=== PATIENT | male | born 1985 | race American Indian/Alaskan Native ===

== ENCOUNTER 2016-11-23 23:05 | Emergency (ER) | payer SELFPAY ==
[2016-11-23 23:05] VITALS: BMI 20.1
[2016-11-23 23:15] VITALS: BP 136/95; PULSE 99; RESP 18; TEMP 101.7; O2SAT 100
[2016-11-24] MEDS ORDERED: Penicillin G Benzathine 1.2 Mill Unit/2 ml Syr IM ONE ×2 (00:13→00:18)
--- NOTE | 2016-11-24 00:36 | C.PDOC ---
History Of Present Illness Patient is a 31 year old male who presents to the ER with a complaint of bilateral ear pain, sore throat and a subjective fever. Denies headache, neck pain, cough, SOB or chest pain. Time Seen by Provider: 11/23/16 23:19 Chief Complaint (Nursing): ENT Problem History Per: Patient History/Exam Limitations: None Onset/Duration Of Symptoms: Days Current Symptoms Are (Timing): Still Present Quality (Ear): denies: Discharge Quality (Mouth/Throat): Tenderness Symptoms Have Been: Continuous Anticoagulant/Antiplatlet Use?: Unknown Recent Aspirin Use: Unknown Past Medical History Reviewed: Historical Data, Nursing Documentation, Vital Signs Vital Signs: Last Vital Signs Temp 101.7 F H 11/23/16 23:13 Pulse 99 H 11/23/16 23:13 Resp 18 11/23/16 23:13 BP 136/95 H 11/23/16 23:13 Pulse Ox 100 11/24/16 04:09 - Medical History PMH: No Chronic Diseases Surgical History: No Surg Hx Family History: States: Unknown Family Hx - Social History Hx Tobacco Use: Yes Hx Alcohol Use: No Hx Substance Use: No - Immunization History Hx Tetanus Toxoid Vaccination: No Hx Influenza Vaccination: No Hx Pneumococcal Vaccination: No Review Of Systems Constitutional: Positive for: Fever (Subjective) ENT: Positive for: Ear Pain, Throat Pain Cardiovascular: Negative for: Chest Pain Respiratory: Negative for: Cough, Shortness of Breath Physical Exam - Physical Exam Appears: Non-toxic Skin: Normal Color, Warm, Dry Head: Atraumatic, Normacephalic Ear(s): Bilateral: Normal Oral Mucosa: Moist Throat: Exudate (Tonsillar), Other (Enlarged tonsils) Neck: Normal, Supple Chest: Symmetrical, No Tenderness Cardiovascular: Rhythm Regular, No Murmur Respiratory: Normal Breath Sounds, No Rales, No Rhonchi, No Wheezing Gastrointestinal/Abdominal: Soft, No Tenderness Neurological/Psych: Oriented x3, Normal Speech, Normal Cognition ED Course And Treatment O2 Sat by Pulse Oximetry: 100 (Room air) Pulse Ox Interpretation: Normal Progress Note: Motrin and penicillin ordered. Pt will follow up with PMD in clinic and understand to return to ER if worse Reassessment Condition: Improved Disposition Counseled Patient/Family Regarding: Diagnosis, Need For Followup, Rx Given - Disposition Referrals: [facility] [Outside] [facility] [employer] [facility] [Outside] Disposition: HOME/ ROUTINE Disposition Time: 00:33 Condition: STABLE Additional Instructions: Please drink fluids Take motrin or advil for pain Gargle with warm salt water Follow up with PMD Return to ER if worse Prescriptions: Ibuprofen [Motrin] 600 mg PO Q6H #20 tab Instructions: Tonsillitis (ED) - Clinical Impression Clinical Impression: Exudative tonsillitis - Scribe Statement The provider has reviewed the documentation as recorded by the Scribprabha Giles All medical record entries made by the Carly were at my direction and personally dictated by me. I have reviewed the chart and agree that the record accurately reflects my personal performance of the history, physical exam, medical decision making, and the department course for this patient. I have also personally directed, reviewed, and agree with the discharge instructions and disposition.
== END 2016-11-24 00:40 | disposition home or self-care (01) ==
LOC: SUPCPDRO 23:05 → C.ER 23:05
DX: J03.90 Acute tonsillitis, unspecified (principal); Z72.0 Tobacco use
CPT/HCPCS: 96372; 99282; J0561

== ENCOUNTER 2017-11-06 16:31 | Emergency (ER) | payer MEDICAID ==
[2017-11-06 16:31] VITALS: BMI 20.1
[2017-11-06 16:50] VITALS: BP 128/83; PULSE 80; RESP 16; TEMP 98.3; O2SAT 98
--- NOTE | 2017-11-06 17:12 | C.PDOC ---
Time Seen by Provider: 11/06/17 16:51 Chief Complaint (Nursing): Cough, Cold, Congestion History Per: Patient Onset/Duration Of Symptoms: Days (3) Current Symptoms Are (Timing): Still Present Associated Symptoms: Sore Throat (resolved), Cough, Myalgias, Nasal Congestion Severity: Moderate Additional History Per: Prior Records Past Medical History Reviewed: Historical Data, Nursing Documentation, Vital Signs Vital Signs: Last Vital Signs Temp 98.3 F 11/06/17 16:48 Pulse 80 11/06/17 16:48 Resp 16 11/06/17 16:48 BP 128/83 11/06/17 16:48 Pulse Ox 98 11/06/17 16:48 - Medical History PMH: No Chronic Diseases Surgical History: No Surg Hx Family History: States: Unknown Family Hx - Social History Hx Tobacco Use: No (Quit 6 months ago) Hx Alcohol Use: No Hx Substance Use: No - Immunization History Hx Tetanus Toxoid Vaccination: No Hx Influenza Vaccination: No Hx Pneumococcal Vaccination: No Review Of Systems Except As Marked, All Systems Reviewed And Found Negative. Constitutional: Positive for: Malaise ENT: Positive for: Nose Congestion. Negative for: Ear Pain Respiratory: Positive for: Cough. Negative for: Shortness of Breath, Hemoptysis Gastrointestinal: Negative for: Vomiting, Abdominal Pain, Diarrhea Genitourinary: Negative for: Dysuria Musculoskeletal: Negative for: Neck Pain, Back Pain, Leg Pain Skin: Negative for: Rash Neurological: Negative for: Weakness, Numbness Physical Exam - Physical Exam Appears: Non-toxic, No Acute Distress Skin: Normal Color, Warm, Dry, No Rash Head: Atraumatic, Normacephalic Eye(s): bilateral: Normal Inspection, PERRL, EOMI Neck: Normal ROM, Supple Lymphatic: No Adenopathy Cardiovascular: Rhythm Regular Respiratory: Normal Breath Sounds, No Accessory Muscle Use Gastrointestinal/Abdominal: Soft, No Tenderness Back: No CVA Tenderness Extremity: Normal ROM, No Pedal Edema, No Calf Tenderness Neurological/Psych: Oriented x3, Normal Speech, Normal Motor, Normal Sensation ED Course And Treatment O2 Sat by Pulse Oximetry: 98 Pulse Ox Interpretation: Normal Disposition Counseled Patient/Family Regarding: Diagnosis, Need For Followup, Rx Given - Disposition Referrals: [facility] [Outside] Disposition: HOME/ ROUTINE Disposition Time: 17:11 Condition: STABLE Additional Instructions: Follow up with your doctor or in the clinic. Return to the ER if you develop high fever, shortness of breath, worsening of symptoms or if you have any other concerns. Prescriptions: Benzonatate 200 mg PO TID PRN #15 capsule PRN Reason: Cough Naproxen [Naprosyn] 1 tab PO BID PRN #20 tab PRN Reason: Pain Oxymetazoline 0.05% [Oxymetazoline HCl 30 Ml] 2 sprays NS BID #1 bottle Instructions: Cough, Runny Nose, and the Common Cold (DC) - Clinical Impression Clinical Impression: Upper respiratory infection
== END 2017-11-06 17:19 | disposition home or self-care (01) ==
LOC: C.ER 16:31
DX: J06.9 Acute upper respiratory infection, unspecified (principal)

== ENCOUNTER 2018-04-04 10:31 | Emergency (ER) | payer MEDICAID ==
[2018-04-04 10:37] VITALS: BMI 23.7
[2018-04-04 10:41] VITALS: BP 123/86; PULSE 90; RESP 18; TEMP 98.3; O2SAT 98
[2018-04-04] MEDS ORDERED: Tetanus/Diphtheria Toxoids 0.5 ml Syringe IM ONE ×2 (11:38→11:44)
[2018-04-04] MEDS ORDERED: Bacitracin 500 Units/gm Oint Foilpak UD TOP ONE (11:39)
--- NOTE | 2018-04-04 11:41 | C.PDOC ---
History Of Present Illness 32 y/o male comes in for evaluation of a laceration to the right lower leg, sustained yesterday while at work around 2pm. States he cut it on a broken mixer. Patient covered the wound yesterday without cleaning it. Today at work he was sent to the ED for evaluation. Patient denies any sensory changes, fever, or wound discharge. He is unsure of tetanus vaccination status. Time Seen by Provider: 04/04/18 11:00 Chief Complaint (Nursing): Abnormal Skin Integrity History Per: Patient History/Exam Limitations: no limitations Onset/Duration Of Symptoms: Days (x1) Current Symptoms Are (Timing): Still Present Quality Of Symptoms: Painful, Swollen Past Medical History Reviewed: Historical Data, Nursing Documentation, Vital Signs Vital Signs: Last Vital Signs Temp 98.3 F 04/04/18 10:38 Pulse 90 04/04/18 10:38 Resp 18 04/04/18 10:38 BP 123/86 04/04/18 10:38 Pulse Ox 98 04/04/18 10:38 - Medical History PMH: GERD Surgical History: No Surg Hx Family History: States: Unknown Family Hx - Social History Hx Tobacco Use: No (Quit 6 months ago) Hx Alcohol Use: No Hx Substance Use: No - Immunization History Hx Tetanus Toxoid Vaccination: No Hx Influenza Vaccination: No Hx Pneumococcal Vaccination: No Review Of Systems Constitutional: Negative for: Fever Skin: Positive for: Lesions (to right lower leg) Neurological: Negative for: Weakness, Numbness Physical Exam - Physical Exam Appears: Non-toxic, No Acute Distress Skin: Normal Color, Warm Head: Atraumatic, Normacephalic Eye(s): bilateral: Normal Inspection Chest: Symmetrical Respiratory: No Accessory Muscle Use, Other (speaking in full sentences) Extremity: Normal ROM (of the right knee and ankle), Capillary Refill (less than 2 sec), No Deformity, Other (lateral aspect of right lower leg with 3.5 cm laceration, in horizontal orientation, which is mildly TTP and swollen; no erythema, fluctuance, or induration; Sensation intact) Pulses: Left Dorsalis Pedis: Normal, Right Dorsalis Pedis: Normal Neurological/Psych: Oriented x3, Normal Speech Gait: Steady ED Course And Treatment O2 Sat by Pulse Oximetry: 98 (RA) Pulse Ox Interpretation: Normal Progress Note: Tetanus booster given. Tylenol administered for pain. Bacitracin and sterile dressing applied. Patient will be discharged home on Keflex, given initial dose in the ED. Instructed patient on wound care and follow up instructions. Disposition Counseled Patient/Family Regarding: Diagnosis, Need For Followup, Rx Given - Disposition Referrals: [facility] [Outside] Disposition: HOME/ ROUTINE Disposition Time: 12:00 Condition: STABLE Additional Instructions: FOLLOW UP WITH YOUR DOCTOR/CLINIC IN 1-2 DAYS USE ANTIBIOTICS UNTIL FINISHED RETURN TO ER IF AREA BECOMES MORE PAINFUK, SWOLLEN, RED, YOU HAVE FEVER OR DISCHARGE, ETC Prescriptions: Cephalexin [Keflex] 500 mg PO BID #14 capsule Ibuprofen [Motrin Tab] 600 mg PO Q6 PRN #30 tab PRN Reason: fever/pain Forms: General Discharge Instructions, [facility] (Turkish), Work Excuse Print Language: GAMBIAN - Clinical Impression Clinical Impression: Laceration of right lower leg - Scribe Statement The provider has reviewed the documentation as recorded by the Scribe (Becky cervantes) Provider Attestation: All medical record entries made by the Scribe were at my direction and personally dictated by me. I have reviewed the chart and agree that the record accurately reflects my personal performance of the history, physical exam, medical decision making, and the department course for this patient. I have also personally directed, reviewed, and agree with the discharge instructions and disposition.
[2018-04-04] MEDS ORDERED: Bacitracin 500 Units/gm Oint Foilpak UD ONE (11:44)
== END 2018-04-04 11:50 | disposition home or self-care (01) ==
LOC: C.ER 10:31
DX: S81.811A Laceration without foreign body, right lower leg, initial encounter (principal); W45.8XXA Other foreign body or object entering through skin, initial encounter; Y92.89 Other specified places as the place of occurrence of the external cause; Y99.0 Civilian activity done for income or pay

== ENCOUNTER 2018-10-12 09:13 | Emergency (ER) | payer MEDICAID ==
[2018-10-12 09:13] VITALS: BMI 23.7
[2018-10-12 09:44] VITALS: BP 120/78; PULSE 84; RESP 16; TEMP 98.8; O2SAT 98
--- NOTE | 2018-10-12 09:59 | C.PDOC ---
History Of Present Illness 33 yr old male w/ hx of GERD p/w sore throat. Pt notes sore throat x4d. Notes some pain on swallowing but no odynophagia, dysphagia or change in phonation. No fall or trauma or neck. No massess or swelling in neck. No headache or chest pain. No current nausea or vomiting. No abdominal pain or complaints. He notes taking aleve yesterday with improvement in his sore throat. He notes being to drink and eat food without issue. He notes chronic nausea, intermittent for 3 years previously diagnosed as GERD and denies any recent or current nausea. No fever, chills or night sweats. No other complaints PMD: Dr. Herrera Time Seen by Provider: 10/12/18 09:19 Chief Complaint (Nursing): ENT Problem Past Medical History Vital Signs: Last Vital Signs Temp 98.8 F 10/12/18 09:42 Pulse 84 10/12/18 09:42 Resp 16 10/12/18 09:42 BP 120/78 10/12/18 09:42 Pulse Ox 98 10/12/18 09:42 Primary Care Provider: FAMILY PROVIDER,NO - Medical History PMH: GERD Family History: States: Unknown Family Hx - Social History Hx Tobacco Use: No (Quit 6 months ago) Hx Alcohol Use: No Hx Substance Use: No - Immunization History Hx Tetanus Toxoid Vaccination: No Hx Influenza Vaccination: No Hx Pneumococcal Vaccination: No Review Of Systems Constitutional: Negative for: Fever, Chills, Sweats, Weakness, Malaise Eyes: Negative for: Pain, Vision Change ENT: Positive for: Throat Pain. Negative for: Ear Pain, Ear Discharge, Nose Pain, Nose Discharge, Nose Congestion, Mouth Pain, Mouth Swelling, Throat Swelling Cardiovascular: Negative for: Chest Pain, Palpitations Respiratory: Negative for: Cough, Shortness of Breath Gastrointestinal: Negative for: Nausea, Vomiting, Abdominal Pain, Diarrhea, Constipation, Melena Genitourinary: Negative for: Dysuria, Frequency Musculoskeletal: Negative for: Neck Pain, Shoulder Pain, Arm Pain, Back Pain, Hand Pain, Leg Pain Skin: Negative for: Rash, Lesions Neurological: Negative for: Weakness, Numbness, Confusion, Altered Mental Status, Headache Psych: Negative for: Anxiety Physical Exam - Physical Exam Appears: Well, Non-toxic, No Acute Distress Skin: Normal Color, Warm, Dry Head: Atraumatic, Normacephalic Eye(s): bilateral: Normal Inspection, PERRL, EOMI Ear(s): Bilateral: Normal Nose: Normal Oral Mucosa: Moist Tongue: Normal Appearing Lips: Normal Appearing Teeth: Normal Dentition Gingiva: Normal Appearing, No Swelling, No Tender Throat: Normal, No Erythema, No Exudate, No Drooling, No Mass Neck: Normal, Normal ROM, No Midline Cervical Tenderness, No Paracervical Tenderness, Supple, Other (no meningeal signs) Chest: Symmetrical Cardiovascular: Rhythm Regular, No Murmur, No JVD Respiratory: Normal Breath Sounds Gastrointestinal/Abdominal: Normal Exam, Soft, No Tenderness, No Mass, No Distention, No Guarding Back: Normal Inspection, No CVA Tenderness, No Vertebral Tenderness Extremity: Normal ROM, No Tenderness Extremity: Bilateral: Atraumatic, No Pedal Edema, Normal Color And Temperature Neurological/Psych: Oriented x3, Normal Speech, Normal Cognition Gait: Steady ED Course And Treatment O2 Sat by Pulse Oximetry: 98 Medical Decision Making Medical Decision Makin yr old male w/ hx of GERD p/w sore throat. No throat swelling or posterior / anterior cervical chain lymphadenopathy noted. TM and oropharyngeal exam unremarkable. uvula midline without redness. No change in phonation / hot potatoe voice noted. No dysphagia / odynophagia. Likely viral URI Pending labs 1100 serology unremarkable pt notes pain improved tolerating solids and fluids well per pt, without current nausea clear for d/c home with return indications and f/u. pt agreeable to plan. Disposition - Disposition Referrals: Stanislav Chun MD [Staff Provider] - [facility] [Outside] [facility] [Outside] [facility] [Outside] Reddy Hinkle MD [Staff Provider] - Disposition Time: 10:57 Condition: STABLE Additional Instructions: LEVON LI, thank you for letting us take care of you today. Your provider was Humberto Rice and you were treated for SORE THROAT. The emergency medical care you received today was directed at your acute symptoms. If you were prescribed any medication, please fill it and take as directed. It may take several days for your symptoms to resolve. Return to the Emergency Department if your symptoms worsen, do not improve, or if you have any other problems. Please contact your doctor or call one of the physicians/clinics you have been referred to that are listed on the Patient Visit Information form that is included in your discharge packet. Bring any paperwork you were given at discharge with you along with any medications you are taking to your follow up visit. Our treatment cannot replace ongoing medical care by a primary care provider outside of the emergency department. Thank you for allowing the [email or web address] team to be part of your care today. If you had an X-Ray or CT scan: A Radiologist will review the ED reading if any change in treatment is needed we will contact you. If you had a blood, urine, or wound culture: It will take several days for the results, if any change in treatment is needed we will contact you. If you had an STI test: It will take 48 hours for the results. Please call after 1 week if you have not heard back. Instructions: Sore Throat, Adult (DC), Viral Upper Respiratory Infection, Adult (DC) Forms: [employer] (Macanese) - Clinical Impression Clinical Impression: Upper respiratory infection, Sore throat
== END 2018-10-12 11:05 | disposition home or self-care (01) ==
LOC: C.ER 09:13
DX: J02.9 Acute pharyngitis, unspecified (principal)

== ENCOUNTER 2018-10-14 22:46 | Emergency (ER) | payer MEDICAID ==
[2018-10-14 22:46] VITALS: BMI 23.7
--- NOTE | 2018-10-15 00:10 | C.PDOC ---
History Of Present Illness 33 year old male presents to the ED c/o sore throat and painful swallowing for the past 4 days. Patient was seen in the ED on 10/12/18 for same presentation. At that time patient had negative strep test and throat culture. Patient still reports pain. Patient denies fever, chills, headache, rash, SOB, wheezing, neck pain, recent travel, sick contacts. Pt has not taken anything OTC Time Seen by Provider: 10/14/18 23:26 Chief Complaint (Nursing): ENT Problem History Per: Patient History/Exam Limitations: no limitations Onset/Duration Of Symptoms: Days (4) Current Symptoms Are (Timing): Still Present Location Of Pain: Throat Associated Symptoms: Sore Throat. denies: Fever, Chills, Sinus Drainage, Nasal Congestion, Vomiting Recent travel outside of the [place]: No Additional History Per: Patient Past Medical History Reviewed: Historical Data, Nursing Documentation, Vital Signs Vital Signs: Last Vital Signs Temp 98.8 F 10/14/18 23:02 Pulse 92 H 10/14/18 23:02 Resp 20 10/14/18 23:02 BP 120/80 10/14/18 23:02 Pulse Ox 97 10/14/18 23:02 Primary Care Provider: Non [facility] Provider, - Medical History PMH: GERD Surgical History: No Surg Hx Family History: States: Unknown Family Hx - Social History Hx Tobacco Use: No (Quit 6 months ago) Hx Alcohol Use: No Hx Substance Use: No - Immunization History Hx Tetanus Toxoid Vaccination: No Hx Influenza Vaccination: No Hx Pneumococcal Vaccination: No Review Of Systems Constitutional: Negative for: Fever, Chills ENT: Positive for: Throat Pain. Negative for: Nose Discharge, Nose Congestion, Mouth Swelling, Throat Swelling Respiratory: Negative for: Cough, Shortness of Breath, Wheezing Gastrointestinal: Negative for: Nausea, Vomiting Musculoskeletal: Negative for: Neck Pain Skin: Negative for: Rash Physical Exam - Physical Exam Appears: Non-toxic, No Acute Distress Skin: Normal Color, Warm, Dry Head: Atraumatic, Normacephalic Eye(s): bilateral: Normal Inspection, PERRL Ear(s): Bilateral: Normal Nose: No Discharge Oral Mucosa: Moist Tongue: Normal Appearing Lips: Normal Appearing Throat: Normal, Erythema (mild), No Exudate, No Drooling Neck: Normal ROM, Supple Chest: Symmetrical Cardiovascular: Rhythm Regular Respiratory: Normal Breath Sounds, No Rales, No Rhonchi, No Wheezing Neurological/Psych: Oriented x3, Normal Speech, Normal Cognition Gait: Steady ED Course And Treatment O2 Sat by Pulse Oximetry: 97 (ON RA) Pulse Ox Interpretation: Normal Progress Note: Patient was advised to continue taking NSAIDs for pain management, prescribed antibiotics. Patient advised to follow up with PMD. Disposition Counseled Patient/Family Regarding: Diagnosis, Need For Followup, Rx Given - Disposition Referrals: [facility] [Outside] Disposition: HOME/ ROUTINE Disposition Time: 00:06 Condition: STABLE Additional Instructions: Increase PO fluids Gargle with warm salt water Follow up with PMD Return to ER if worse Prescriptions: Cetirizine HCl [Zyrtec] 10 mg PO DAILY #14 capsule Ibuprofen [Motrin Tab] 800 mg PO QID #24 tab Lidocaine 2% Viscous 15 ml MM BID #50 ml Forms: [employer] (Burkinan) - Clinical Impression Clinical Impression: Viral pharyngitis - PA / [employer]EL[employer] / Resident Statement MD/DO has reviewed & agrees with the documentation as recorded. - Scribe Statement The provider has reviewed the documentation as recorded by the Scribe Markie Miranda All medical record entries made by the Scribe were at my direction and personally dictated by me. I have reviewed the chart and agree that the record accurately reflects my personal performance of the history, physical exam, medical decision making, and the department course for this patient. I have also personally directed, reviewed, and agree with the discharge instructions and disposition.
[2018-10-15 00:16] VITALS: BP 127/83; PULSE 83; RESP 18; TEMP 98.3
[2018-10-15 02:08] VITALS: O2SAT 97
== END 2018-10-15 00:17 | disposition home or self-care (01) ==
LOC: C.ER 22:46
DX: J02.9 Acute pharyngitis, unspecified (principal)